=== PATIENT | female | born 1995 | race African-American/Black ===

== ENCOUNTER 2018-11-26 20:03 | Inpatient (IN) | payer OTHER ==
[~2018-11-26] VITALS: Ht 165.1 cm; Wt 72.6 kg
[2018-11-26] MEDS ORDERED: DEXT 5%/LR + PITOCIN 20UNITS/L 1,000 ML IV SCH ×2 (20:17→22:52)
[2018-11-26] MEDS ORDERED: CARBOPROST TROMETHAMINE 250 MCG/ML AMPUL IM PRN (20:30)
[2018-11-26] MEDS ORDERED: PENICILLIN G POTASSIUM 5 MMU in DEXT 5% WATER 100 ML IV NR (20:30)
[2018-11-26] MEDS ORDERED: LIDOCAINE HCL 1% 20ML VIAL (Pyxis) INJ INFIL SCH (20:30)
[2018-11-26] MEDS: LACTATED RINGERS 1,000 ML IV SCH ×2 (20:30→21:00)
[2018-11-26] MEDS ORDERED: MISOPROSTOL 100MCG TABLET VG SCH (20:30)
[2018-11-26] MEDS ORDERED: METHYLERGONOVINE MALEATE 0.2 MG/ML IM PRN (20:30)
[2018-11-26 21:10] LABS: CLARITY URINE CLEAR (CLEAR); COLOR URINE YELLOW (YELLOW); KETONES URINE 2+ (NEGATIVE); LEUKOCYTE ESTERASE URINE 1+ (NEGATIVE); NITRITE URINE NEGATIVE (NEGATIVE); OCCULT BLOOD URINE 2+ (NEGATIVE); PROTEIN URINE 1+ (NEGATIVE); SPECIFIC GRAVITY URINE 1.016 (1.005-1.030)
[2018-11-26] MEDS: BUTORPHANOL TARTRATE 2 MG/ML VIAL IV PRN ×2 (21:11→23:14)
[2018-11-26 21:13] LABS: PARTIAL THROMBOPLASTIN TIME 29.7 sec (23.4-31.0); PROTHROMBIN TIME 9.7 sec (9.1-11.1)
[2018-11-26 21:14] LABS: BASOPHILS % 0.5 % (0.0-2.0); EOSINOPHILS % 0.1 % (0.0-5.0); HEMATOCRIT. 34.1 % (36.0-48.0); HEMOGLOBIN. 11.7 g/dL (12.0-16.0); LYMPHOCYTES % 17.4 % (20.0-50.0); MEAN CORPUSCULAR HEMOGLOBIN 32.7 pg (28.0-32.0); MEAN CORPUSCULAR VOLUME 95.4 fL (81.0-99.0); MEAN PLATELET VOLUME 10.3 fl (7.4-10.4); MONOCYTES % 6.1 % (2.0-8.0); NEUTROPHILS % 75.9 % (40.0-76.0); PLATELET 190 x1000/uL (130-400); RED BLOOD CELL COUNT 3.58 mill/uL (4.2-5.4); RED CELL DISTRIBUTION WIDTH 13.2 % (11.6-14.6)
[2018-11-26 21:18] LABS: *AMPHETAMINES SCREEN URINE NEGATIVE (NEGATIVE); *BARBITURATES SCREEN URINE NEGATIVE (NEGATIVE)
[2018-11-26 21:19] LABS: *BENZODIAZEPINES SCREEN URINE NEGATIVE (NEGATIVE); *COCAINE SCREEN URINE NEGATIVE (NEGATIVE); CANNABINOID URINE SCREEN NEGATIVE (NEGATIVE); METHADONE URINE SCREEN NEGATIVE (NEGATIVE); OPIATES URINE SCREEN NEGATIVE (NEGATIVE); PHENCYCLIDINE URINE SCREEN NEGATIVE (NEGATIVE)
[2018-11-26] MEDS ORDERED: LABETALOL 5MG/ML SYR 20 MG/4 ML SYRINGE IV NR (21:30)
[2018-11-26 21:45] LABS: CHLORIDE 101 mEq/L (98-107)
[2018-11-26 21:48] LABS: HEPATITIS B SURFACE ANTIGEN NEGATIVE
[2018-11-26] MEDS: MAGNESIUM 20 G PREMIX (L & D) 500 ML IV SCH ×2 (22:50→23:50)
[2018-11-26] MEDS ORDERED: ACETAMINOPHEN WITH CODEINE 300/30MG TABLET PO PRN (23:00)
[2018-11-26] MEDS ORDERED: BISACODYL 10MG SUPP PR PRN (23:00)
[2018-11-26] MEDS ORDERED: MAGNESIUM 4 G PREMIX 100 ML IV NR (23:10)
[2018-11-27] VITALS (9 sets, daily range): BP systolic 124–136; BP diastolic 64–93
[2018-11-27] MEDS ORDERED: PENICILLIN G POTASSIUM 2.5 MMU in DEXTROSE 5% WATER 50 ML IV SCH (01:00)
[2018-11-27] MEDS: IBUPROFEN 400MG TABLET PO PRN ×3 (02:10→17:57)
[2018-11-27 07:55] LABS: BASOPHILS % 0.3 % (0.0-2.0); EOSINOPHILS % 0.3 % (0.0-5.0); HEMATOCRIT. 33.1 % (36.0-48.0); HEMOGLOBIN. 11.2 g/dL (12.0-16.0); LYMPHOCYTES % 15.8 % (20.0-50.0); MEAN CORPUSCULAR HEMOGLOBIN 31.2 pg (28.0-32.0); MEAN CORPUSCULAR VOLUME 92.3 fL (81.0-99.0); MEAN PLATELET VOLUME 10.1 fl (7.4-10.4); MONOCYTES % 14.7 % (2.0-8.0); NEUTROPHILS % 68.9 % (40.0-76.0); PLATELET 182 x1000/uL (130-400); RED BLOOD CELL COUNT 3.58 mill/uL (4.2-5.4); RED CELL DISTRIBUTION WIDTH 13.2 % (11.6-14.6)
[2018-11-27] MEDS: FERROUS SULFATE 325MG TABLET PO SCH ×3 (08:42→17:57)
[2018-11-27] MEDS: MAGNESIUM/ALUMINUM HYDROXIDE/SIMETHICONE 30ML UDC PO SCH ×5 (08:43→20:47)
[2018-11-27] MEDS: SIMETHICONE 80MG TABLET CHEW PO SCH ×5 (08:43→20:46)
[2018-11-27] MEDS: PRENATAL VIT/FE FUMARATE/FA TABLET PO SCH (08:43)
[2018-11-27] MEDS: LABETALOL HCL 100MG TABLET PO SCH ×2 (08:45→20:49)
[2018-11-27] MEDS: MAGNESIUM 20 G PREMIX (L & D) 500 ML IV SCH (19:19)
[2018-11-27] MEDS ORDERED: DOCUSATE SODIUM 100MG CAPSULE PO SCH (21:00)
[2018-11-28] MEDS: IBUPROFEN 400MG TABLET PO PRN ×2 (00:05→06:13)
[2018-11-28 07:34] VITALS: BP 118/85
[2018-11-28] MEDS: PRENATAL VIT/FE FUMARATE/FA TABLET PO SCH (09:08)
[2018-11-28] MEDS: LABETALOL HCL 100MG TABLET PO SCH (09:08)
[2018-11-28] MEDS: FERROUS SULFATE 325MG TABLET PO SCH (09:08)
[2018-11-28] MEDS: MAGNESIUM/ALUMINUM HYDROXIDE/SIMETHICONE 30ML UDC PO SCH (09:09)
[2018-11-28] MEDS: SIMETHICONE 80MG TABLET CHEW PO SCH (09:09)
== END 2018-11-28 13:00 | disposition home or self-care (01) | DRG 560 ==
LOC: OBSVTOIN 20:03 → 8 EST LDRP 20:03 → 8EST 22:51 → 8 EST LDRP 23:44 → 8EST 11-27 00:25
PROVIDERS: ADMIT Obstetrics & Gynecology; ATTEND Obstetrics & Gynecology
PROC: 10E0XZZ Delivery of Products of Conception, External Approach (ICD-10-PCS; principal; 2018-11-27)
DX: O80 Encounter for full-term uncomplicated delivery (principal); Z37.0 Single live birth; Z3A.39 39 weeks gestation of pregnancy
CPT/HCPCS: 36415; 80305; 83735; 84550; 86592; 86703; 86762; 86850; 86900; 87340; 99281; G0378; J0595; J2540; J2590; J3475; J3490; J7060; A4315

== ENCOUNTER 2021-02-08 20:23 | Emergency (ER) | payer OTHER ==
[~2021-02-08] VITALS: Ht 170.2 cm; Wt 59.0 kg
[2021-02-08 21:32] LABS: CLARITY URINE CLOUDY (CLEAR); COLOR URINE YELLOW (YELLOW); KETONES URINE TRACE (NEGATIVE); LEUKOCYTE ESTERASE URINE 2+ (NEGATIVE); NITRITE URINE NEGATIVE (NEGATIVE); OCCULT BLOOD URINE 3+ (NEGATIVE); PH URINE 6.5 (4.5-8.0); PROTEIN URINE 2+ (NEGATIVE); SPECIFIC GRAVITY URINE 1.026 (1.005-1.030)
[2021-02-08 21:50] LABS: BASOPHILS % 0.4 % (0.0-2.0); EOSINOPHILS % 4.1 % (0.0-5.0); HEMATOCRIT. 37.4 % (36.0-48.0); HEMOGLOBIN. 12.7 g/dL (12.0-16.0); LYMPHOCYTES % 33.5 % (20.0-50.0); MEAN CORPUSCULAR HEMOGLOBIN 31.7 pg (28.0-32.0); MEAN CORPUSCULAR VOLUME 93.2 fL (81.0-99.0); MEAN PLATELET VOLUME 8.7 fl (7.4-10.4); MONOCYTES % 11.3 % (2.0-8.0); NEUTROPHILS % 50.7 % (40.0-76.0); PLATELET 191 x1000/uL (130-400); RED BLOOD CELL COUNT 4.01 mill/uL (4.2-5.4); RED CELL DISTRIBUTION WIDTH 13.2 % (11.6-14.6)
[2021-02-08 21:53] LABS: CHLORIDE 107 mEq/L (98-107)
[2021-02-08 22:09] LABS: HCG SCREEN NEGATIVE
[2021-02-08] MEDS ORDERED: IBUPROFEN 600MG TABLET PO ONE (22:15)
[2021-02-08] MEDS ORDERED: IBUP-2028 MT (23:49)
[2021-02-08] MEDS ORDERED: NITR-87 MT (23:49)
[2021-02-09] MEDS ORDERED: POTASSIUM CHLORIDE 20MEQ TABLET SR PO ONE
[2021-02-09 00:36] VITALS: BP 127/75
== END 2021-02-09 00:38 | disposition home or self-care (01) ==
LOC: ER 20:23
DX: N39.0 Urinary tract infection, site not specified (principal); E87.6 Hypokalemia; R03.0 Elevated blood-pressure reading, without diagnosis of hypertension
CPT/HCPCS: 36415; 76830; 76856; 80053; 81003; 81025; 84703; 85025; 99284

== ENCOUNTER 2022-09-22 16:53 | Emergency (ER) | payer MEDICAID, OTHER ==
[~2022-09-22] VITALS: Ht 165.1 cm; Wt 54.0 kg
[~2022-09-22 16:53] MED LIST: IBUP-2028 MT; NITR-87 MT
[2022-09-22] MEDS ORDERED: TETANUS, DIPHTHERIA, PERTUSSIS VAC/PF 0.5ML (>10YR OLD) IM ONE (18:30)
[2022-09-22] MEDS ORDERED: BACITRACIN ZINC OINT UDPKT TOP SCH (20:30)
[2022-09-22] MEDS ORDERED: BACITRACIN/POLYMYXIN B SULFATE OINT 15GM TOP ONE (20:45)
[2022-09-22] MEDS ORDERED: IBUPROFEN 800MG TABLET PO ONE (20:45)
[2022-09-22 20:58] VITALS: BP 126/74
== END 2022-09-22 20:58 | disposition home or self-care (01) ==
LOC: ER 16:53
DX: S60.412A Abrasion of right middle finger, initial encounter (principal); H11.31 Conjunctival hemorrhage, right eye; Y04.0XXA Assault by unarmed brawl or fight, initial encounter; Y93.89 Activity, other specified; Y92.89 Other specified places as the place of occurrence of the external cause
CPT/HCPCS: 73130; 90471; 90715; 99283